=== PATIENT | female | born 1940 | race Caucasian/White ===

== ENCOUNTER 2016-09-21 11:06 | Emergency (ER) | payer OTHER ==
[2016-09-21 11:21] VITALS: BP 151/81; PULSE 76; RESP 16; TEMP 98.4; O2SAT 96
--- NOTE | 2016-09-21 11:51 | EDPHY ---
H & P Time Seen by Provider: 09/21/16 11:28 HPI/ROS: CHIEF COMPLAINT: Rash History by patient HISTORY OF PRESENT ILLNESS: 76-year-old otherwise healthy woman complains of 4 days of rash on the left side of her neck and face. She describes it as both itchy and stinging. It began with some vesicles has leaked some clear fluid. There has been associated fever systemic symptoms. She has not put anything on it. She denies any exposures to lotions, creams her hair dye. She did have chickenpox as a child. REVIEW OF SYSTEMS: As in HPI, and all other systems reviewed and are negative Smoking Status: Never smoked Physical Exam: General Appearance: Alert and no distress. Eyes: Pupils equal and round no injection. Musculoskeletal: Neck is supple and nontender. Skin: Positive red vesicular rash on the left side of neck from mid clavicle to jawline with clear delineation of midline anteriorly and posteriorly with diffuse vesicular lesions and erythema, TM and ear are clear Constitutional: Initial Vital Signs Temperature (C) 36.9 C 09/21/16 11:19 Heart Rate 76 09/21/16 11:19 Respiratory Rate 16 09/21/16 11:19 Blood Pressure 151/81 H 09/21/16 11:19 O2 Sat (%) 96 09/21/16 11:19 O2 Delivery Mode Room Air Allergies/Adverse Reactions: No Known Allergies Allergy (Unverified 09/21/16 11:22) Home Medications: Medication Instructions Recorded Valacyclovir HCl [Valacyclovir] 1,000 mg PO TID #21 tablet 09/21/16 MDM/Departure - [facility] Course/Re-evaluation: 76-year-old woman presents with classic herpes zoster rash with no evidence of superinfection or systemic toxicity. Patient be started on antiviral medication. Recommending ibuprofen or Tylenol or topical lidocaine for pain. Patient is referred for primary care. - Depart Disposition: Home, Routine, Self-Care Clinical Impression: Shingles rash Condition: Good Instructions: Shingles (ED) Additional Instructions: You were seen by Dr. Della Verduzco today. Take medicine and prednisone as prescribed. Please establish a primary care doctor. Return for any worsening or new concerns. Prescriptions: Valacyclovir HCl [Valacyclovir] 1,000 mg PO TID #21 tablet Referrals: NONE *PRIMARY CARE P,. [Primary Care Provider] - As per Instructions
== END 2016-09-21 12:15 | disposition home or self-care (01) ==
LOC: CED 11:06
DX: B02.9 Zoster without complications (principal)